=== PATIENT | male | born 1990 | race Caucasian/White ===

== ENCOUNTER → 2021-12-24 10:22 | Outpatient (BNVA) | payer MEDICAID, SELFPAY | PROVIDERS: Family Provider Internal Medicine; PCP Family Medicine; Referring Provider Nurse Practitioner Family; Visit Provider Podiatrist Foot & Ankle Surgery | DX: M76.821 Posterior tibial tendinitis, right leg (principal); M21.41 Flat foot [pes planus] (acquired), right foot; M21.42 Flat foot [pes planus] (acquired), left foot | CPT/HCPCS: 73630; 99203; 99204 ==

== ENCOUNTER 2022-01-27 19:41 | Emergency (ER) | payer MEDICAID, SELFPAY ==
[2022-01-27 19:51] VITALS: BP 149/94; PULSE 95; RESP 16; TEMP 36.7; O2SAT 97; BMI 35.2
[2022-01-27 20:10] LABS: Add Urine Microscopic? NO; Charge for UA Resulting for Rev
[2022-01-27 20:14] LABS: Glucose Urine UA 4+ (Normal); Specific Gravity, Urine 1.005 (1.005-1.030); Urine Appearance Clear (CLEAR); Urine Color Yellow (Yellow); pH Urine 7 (5-7)
[2022-01-27 20:15] LABS: Bilirubin Urine Neg (Negative); Blood Urine Neg (Negative); Ketones Urine Negative (Negative); Leukocyte Esterase Urine Negative (Negative); Nitrate Urine Negative (Negative); Protein Urine Neg (Negative); Urobilinogen Urine Neg (Negative)
--- NOTE | 2022-01-27 21:33 | CTR_ITS ---
PROCEDURE INFORMATION: Exam: CT Abdomen And Pelvis Without Contrast Exam date and time: 01/27/2022 9:51 PM Age: 31 years old Clinical indication: Abdominal pain; Flank; Other: Bilateral; Additional info: Bilateral flank pain TECHNIQUE: Imaging protocol: Computed tomography of the abdomen and pelvis without contrast. Radiation optimization: All CT scans at this facility use at least one of these dose optimization techniques: automated exposure control; mA and/or kV adjustment per patient size (includes targeted exams where dose is matched to clinical indication); or iterative reconstruction. COMPARISON: CR XR pelvis 1-2V* [id number] 04/09/2017 7:13 AM RADIATION DOSE METRICS: Total DLP (mGy-cm): 1180.9 FINDINGS: Lungs: The lung bases appear unremarkable. Liver: Hepatomegaly noted. Liver measures 21 cm in length. Decreased hepatic density consistent with hepatic steatosis noted. Gallbladder and bile ducts: Unremarkable. No calcified stones. No ductal dilation. Pancreas: The pancreas is normal in appearance. No pancreatic duct dilatation. Spleen: Splenomegaly noted. Spleen measures 15 cm in length. No focal splenic lesion. Adrenal glands: The adrenal glands appear within normal limits. Kidneys and ureters: The kidneys are morphologically normal. No nephrolithiasis. No hydronephrosis. No ureteral calculi. No obstructive uropathy. Stomach and bowel: No acute gastric abnormality demonstrated. The small bowel is unremarkable as demonstrated. Minimal diverticulosis of the colon. No acute diverticulitis. Appendix: The appendix is normal in appearance. No evidence of appendicitis. Intraperitoneal space: No pneumoperitoneum. No significant fluid collection. Vasculature: No abdominal aortic aneurysm. Lymph nodes: No pathologically enlarged lymph nodes are demonstrated. No pathologically enlarged lymph nodes are demonstrated. Urinary bladder: The urinary bladder is unremarkable in appearance. The urinary bladder is unremarkable in appearance. Reproductive: Unremarkable as visualized. Bones/joints: No fracture or other acute osseous abnormality. Soft tissues: The soft tissues are unremarkable as demonstrated. CT/CT kidney stone [id number] IMPRESSION: 1. The kidneys are morphologically normal. No nephrolithiasis. No hydronephrosis. No ureteral calculi. No obstructive uropathy. 2. Hepatomegaly noted. Liver measures 21 cm in length. Decreased hepatic density consistent with hepatic steatosis noted. 3. No acute abnormality demonstrated in the abdomen and pelvis.
--- NOTE | 2022-01-27 21:34 | W.ED.MALEGU ---
Documented by User: OLIVER Delarosa 01/28/22 03:02 HPI - Male Genitourinary General: Chief complaint: Urogenital-Male Stated complaint: left abdomen pain, Left back pain, N/v Time Seen by Provider: 01/27/22 21:28 History of Present Illness: Patient is a 31-year-old male that comes to the ED with bilateral flank pain. Symptoms started approximately 3 days ago. Flank pain starts in the lower part of back and radiates up to the mid back bilaterally. He rates the pain currently a 10 out of 10. He has had intermittent nausea and vomiting as well for the past couple days. Endorses having burning pain when he urinates and that his urine is dark in color. Endorses chills. Denies any fevers, abdominal pain, bowel symptoms. Associated symptoms: Reports dysuria (Burning pain when he urinates) and hematuria (Dark-colored urine); Deny nausea or vomiting Review of Systems Const: Denies: fever(s), chills or fatigue Eyes: Denies: change in vision or eye discomfort ENMT: Denies: throat pain, odynophagia, nasal discharge or nasal congestion Card: Denies: chest pain, palpitations, edema, swelling of feet/ankles, dyspnea on exertion or orthopnea Resp: Denies: dyspnea, productive cough or non-productive cough GI: Denies: abdominal pain, nausea, vomiting, diarrhea, constipation or hematochezia : Reports: flank pain (Bilateral), dysuria (Burning pain when he urinates) and hematuria (Dark-colored urine); Denies: difficulty urinating Musc: Reports: back pain; Denies: neck pain or extremity swelling Skin/Breast: Denies: rash or new lesions Neuro: Denies: headache(s), numbness in extremities or weakness in extremities PFS ED PFSH: Medical History No pertinent family history Surgical History No pertinent past surgical history Social History Smoking and tobacco status: never smoked Second hand smoke exposure: No Smoking risk assessment/counseling performed?: No Alcohol intake: never Desire information about alcohol rehabilitation?: No Counseling given: No Desire information about substance/drug rehabilitation?: No Counseling given: No Physical Exam Const: COMMON NORMALS: patient oriented x3 and alert GENERAL APPEARANCE: cooperative HENMT: COMMON NORMALS: normocephalic HEAD & SCALP: normocephalic MOUTH: Normal oral and palatal mucosa present THROAT: posterior oropharynx normal and uvula midline Neck/C-Spine: COMMON NORMALS: supple GENERAL: Yes normal visual inspection Resp: COMMON NORMALS: normal respiratory effort, No retractions, No use of accessory muscles and clear to auscultation bilaterally AUSCULTATION: clear to auscultation bilaterally Cardio: COMMON NORMALS: regular rate, regular rhythm, S1 normal heart sound present, S2 normal heart sound present, No gallops present (Cardio), No clicks present (Cardio), No murmurs present (Cardio) and Peripheral pulses 2+ throughout RATE: regular rate RHYTHM: regular rhythm HEART SOUNDS: S1 normal heart sound present and S2 normal heart sound present PERIPHERAL PULSES: Peripheral pulses 2+ throughout GI: COMMON NORMALS: Normal to inspection, nondistended, normoactive bowel sounds present, Soft to palpation, non-tender and no masses PALPATION: Yes Soft to palpation : BLADDER/KIDNEY EXAM: Yes CVA tenderness bilateral Back/Pelvis: GENERAL BACK: Yes CVA tenderness LUMBAR SPINE/LOWER BACK: Yes paraspinal muscle tenderness Lumbar paraspinal muscle tenderness: bilateral Extremity: COMMON NORMALS: normal to inspection Neuro: COMMON NORMALS: patient oriented x3 SENSORIUM/ORIENTATION: Yes alert GAIT: Yes Normal gait present Skin: GENERAL SKIN EXAM: dry skin Course Vital Signs: Vital signs: Vital Signs Temperature 98.1 F 01/27/22 19:51 Pulse Rate 77 01/27/22 21:48 Respiratory Rate 18 01/27/22 21:48 Blood Pressure 140/82 01/27/22 21:48 Pulse Oximetry 97 01/27/22 21:48 Oxygen Delivery Me thod 01/27/22 21:48 MDM - Male Medical Decision Making Patient is a 31-year-old male that comes to the ED with bilateral flank pain. Symptoms started approximately 3 days ago. Flank pain starts in the lower part of back and radiates up to the mid back bilaterally. Vitals are stable. Patient has some CVA tenderness bilaterally and some lumbar paraspinal muscle tenderness bilaterally upon exam. The rest of exam is benign. Glucose of 329 but the rest of CBC and CMP were unremarkable. UA showed no blood or any signs of UTI. CT of abdomen pelvis showed no acute findings. Patient was given some IV insulin and morphine given to help with pain. His symptoms had resolved and he was feeling better. He was diagnosed with hyperglycemia and back pain. I told patient to follow-up with PCP to get checked for diabetes. He was sent home with a prescription for ibuprofen and a muscle relaxer. Return ED precautions given. Patient understood and agreed with plan. Lab Data I reviewed the patient's lab results. 01/27/22 21:37 01/27/22 21:37 Radiology Impressions Abdomen/Pelvis CT 01/27/22 21:33 IMPRESSION: 1. The kidneys are morphologically normal. No nephrolithiasis. No hydronephrosis. No ureteral calculi. No obstructive uropathy. 2. Hepatomegaly noted. Liver measures 21 cm in length. Decreased hepatic density consistent with hepatic steatosis noted. 3. No acute abnormality demonstrated in the abdomen and pelvis. Laboratory Results WBC 9.3 10^3/uL (4.0-10.0) 01/27/22 21:37 RBC 5.44 10^6/uL (4.1-5.3) H 01/27/22 21:37 Hgb 16.4 g/dL (11.7-16.6) 01/27/22 21:37 Hct 47.5 % (42.0-52.0) 01/27/22 21:37 MCV 87.3 fl (80-94) 01/27/22 21:37 MCH 30.1 pg (28.0-34.0) 01/27/22 21:37 MCHC 34.5 g/dL (30.0-36.0) 01/27/22 21:37 RDW 12.7 % (12.1-15.1) 01/27/22 21:37 Plt Count 271 10^3/cmm (130-400) 01/27/22 21:37 MPV 9.2 fL (7.4-10.4) 01/27/22 21:37 Neut % (Auto) 63.8 % 01/27/22 21: Lymph % (Auto) 26.6 % 01/27/22 21: [place] % (Auto) 7.9 % 01/27/22 21:37 Eos % (Auto) 1.1 % 01/27/22 21:37 Baso % (Auto) 0.3 % 01/27/22 21:37 Neut # (Auto) 5.91 10^3/uL (1.8-7.7) 01/27/22 21:37 Lymph # (Auto) 2.5 10^3/uL (0.8-4.8) 01/27/22 21:37 [place] # (Auto) 0.7 10^3/uL (0.2-0.9) 01/27/22 21:37 Eos # (Auto) 0.1 10^3/uL (0.0-0.8) 01/27/22 21:37 Baso # (Auto) 0.0 10^3/uL (0.0-0.1) 01/27/22 21:37 Nucleated RBC % (auto) 0 % 01/27/22 21:37 Nucleated RBCs # 0.0 /100WBC 01/27/22 21:37 Sodium 135 mmol/L (136-145) L 01/27/22 21:37 Potassium 4.2 mmol/L (3.5-5.1) 01/27/22 21:37 Chloride 101 mmol/L (98-107) 01/27/22 21:37 Carbon Dioxide 24 mmol/L (22-29) 01/27/22 21:37 Anion Gap 14.2 (5-19) 01/27/22 21:37 BUN 7 mg/dL (6-20) 01/27/22 21:37 Creatinine 0.8 mg/dL (0.7-1.2) 01/27/22 21:37 GFR Calculation 113.5 mL/min (90-130) 01/27/22 21:37 Glucose 329 mg/dL (65-115) H 01/27/22 21:37 POC Glucose 178 mg/dL (70-110) H 01/27/22 23:30 Calculated Osmolality 291 mOsm/kg (285-295) 01/27/22 21:37 Calcium 9.4 mg/dL (8.5-10.5) 01/27/22 21:37 Total Bilirubin 0.3 mg/dL (0.15-1.2) 01/27/22 21:37 AST 43 U/L (0-40) H 01/27/22 21:37 ALT 83 U/L (0-41) H 01/27/22 21:37 Alkaline Phosphatase 108 U/L (40-130) 01/27/22 21:37 Total Protein 7.4 g/dL (6.6-8.7) 01/27/22 21:37 Albumin 4.6 g/dL (3.5-5.2) 01/27/22 21:37 Globulin 2.8 g/dL (1.3-4.6) 01/27/22 21:37 Lipase 75 U/L (13-60) H 01/27/22 21:37 Urine Color Yellow (Yellow) 01/27/22 19:57 Urine Appearance Clear (CLEAR) 01/27/22 19:57 Urine pH 7 (5-7) 01/27/22 19:57 Ur Specific [place] 1.005 (1.005-1.030) 01/27/22 19:57 Urine Protein Neg (Negative) 01/27/22 19:57 Urine Glucose (UA) 4+ (Normal) H 01/27/22 19:57 Urine Ketones Negative (Negative) 01/27/22 19:57 Urine Blood Neg (Negative) 01/27/22 19:57 Urine Nitrate Negative (Negative) 01/27/22 19:57 Urine Bilirubin Neg (Negative) 01/27/22 19:57 Urine Urobilinogen Neg mg/dL (Negative) 01/27/22 19:57 Ur Leukocyte Esterase Negative (Negative) 01/27/22 19:57 Discharge Plan Discharge Patient Disposition: Home Clinical Impression: Hyperglycemia Back pain Qualifiers: Back pain location: low back pain Chronicity: unspecified Back pain laterality: unspecified Sciatica presence: without sciatica Qualified Code(s): M54.50 - Low back pain, unspecified Condition: Stable Prescriptions: New ibuprofen 600 mg tablet 600 mg PO Q8H PRN (Reason: back pain) Qty: 20 0RF methocarbamol 750 mg tablet 750 mg PO Q8H PRN (Reason: Back muscle pain or spasms) Qty: 20 0RF No Action oxcarbazepine 300 mg tablet 600 mg PO BID azelastine 137 mcg (0.1 %) aerosol,spray 1 spray intranasal BID Rx Instructions: administer into each nostril Allergy Relief (cetirizine) 10 mg capsule 10 mg PO DAILY topiramate 100 mg tablet 100 mg PO BID Invega Sustenna 234 mg/1.5 mL syringe 234 mg IM Q30D calcium polycarbophil [Fiber Laxative (ca polycarbo)] 625 mg tablet 1,250 mg PO BID Discharge Orders: Discharge ED (Routine); Ordered 01/27/22 Ordered By: Robin Wagner Referrals: Jessica Montague FNP [Primary Care Provider] - Discharge Diet: Regular Discharge Activity: Increase activity as tolerated Patient Instructions: Hyperglycemia, Back Pain (ED) Activity Restrictions/Additional Instructions: Follow-up with medical provider as directed. Follow-up with your PCP in the next 2 to 3 days for reevaluation and check labs for diabetes. take medications as prescribed. Return to the ER or your medical provider if condition worsens. Please read and understand discharge instructions. Thank you for choosing [facility] for your healthcare needs today. Please realize this is an emergency room and that we are providing you with a medical screening exam and this may not be complete and all inclusive of all the testing and or work up that you may need to determine your ailment or severity of your illness. It is very important that you follow up as instructed or that you return to the Emergency Department should you have concerns or if your condition changes or worsens in any way. Coding Level of Care Code ED Electro Optical Engineer for Chg Fwd Exam Comprehensive Documented by User: Chadwick Heath, 01/28/22 03:34 HPI - Male Genitourinary General: Chief complaint: Urogenital-Male Stated complaint: left abdomen pain, Left back pain, N/v Time Seen by Provider: 01/27/22 21:28 [facility] ED PFSH: Medical History No pertinent family history Surgical History No pertinent past surgical history Social History Smoking and tobacco status: never smoked Second hand smoke exposure: No Smoking risk assessment/counseling performed?: No Alcohol intake: never Desire information about alcohol rehabilitation?: No Counseling given: No Desire information about substance/drug rehabilitation?: No Counseling given: No Course Vital Signs: Vital signs: Vital Signs Temperature 98.1 F 01/27/22 19:51 Pulse Rate 77 01/27/22 21:48 Respiratory Rate 18 01/27/22 21:48 Blood Pressure 140/82 01/27/22 21:48 Pulse Oximetry 97 01/27/22 21:48 Oxygen Delivery Me thod 01/27/22 21:48 MDM - Male Medical Decision Making Patient is a 31-year-old male that comes to the ED with bilateral flank pain. Symptoms started approximately 3 days ago. Flank pain starts in the lower part of back and radiates up to the mid back bilaterally. Vitals are stable. Patient has some CVA tenderness bilaterally and some lumbar paraspinal muscle tenderness bilaterally upon exam. The rest of exam is benign. Glucose of 329 but the rest of CBC and CMP were unremarkable. UA showed no blood or any signs of UTI. CT of abdomen pelvis showed no acute findings. Patient was given some IV insulin and morphine given to help with pain. His symptoms had resolved and he was feeling better. He was diagnosed with hyperglycemia and back pain. I told patient to follow-up with PCP to get checked for diabetes. He was sent home with a prescription for ibuprofen and a muscle relaxer. Return ED precautions given. Patient understood and agreed with plan. This patient was originally seen by Mr. Kristy PA-C.? I agree with his history, evaluation, and treatment. Lab Data 01/27/22 21:37 01/27/22 21:37 Radiology Impressions Abdomen/Pelvis CT 01/27/22 21:33 IMPRESSION: 1. The kidneys are morphologically normal. No nephrolithiasis. No hydronephrosis. No ureteral calculi. No obstructive uropathy. 2. Hepatomegaly noted. Liver measures 21 cm in length. Decreased hepatic density consistent with hepatic steatosis noted. 3. No acute abnormality demonstrated in the abdomen and pelvis. Laboratory Results WBC 9.3 10^3/uL (4.0-10.0) 01/27/22 21:37 RBC 5.44 10^6/uL (4.1-5.3) H 01/27/22 21:37 Hgb 16.4 g/dL (11.7-16.6) 01/27/22 21:37 Hct 47.5 % (42.0-52.0) 01/27/22 21:37 MCV 87.3 fl (80-94) 01/27/22 21:37 MCH 30.1 pg (28.0-34.0) 01/27/22 21:37 MCHC 34.5 g/dL (30.0-36.0) 01/27/22 21:37 RDW 12.7 % (12.1-15.1) 01/27/22 21:37 Plt Count 271 10^3/cmm (130-400) 01/27/22 21:37 MPV 9.2 fL (7.4-10.4) 01/27/22 21:37 Neut % (Auto) 63.8 % 01/27/22 21:37 Lymph % (Auto) 26.6 % 01/27/22 21:37 [place] % (Auto) 7.9 % 01/27/22 21:37 Eos % (Auto) 1.1 % 01/27/22 21:37 Baso % (Auto) 0.3 % 01/27/22 21:37 Neut # (Auto) 5.91 10^3/uL (1.8-7.7) 01/27/22 21:37 Lymph # (Auto) 2.5 10^3/uL (0.8-4.8) 01/27/22 21:37 [place] # (Auto) 0.7 10^3/uL (0.2-0.9) 01/27/22 21:37 Eos # (Auto) 0.1 10^3/uL (0.0-0.8) 01/27/22 21:37 Baso # (Auto) 0.0 10^3/uL (0.0-0.1) 01/27/22 21:37 Nucleated RBC % (auto) 0 % 01/27/22 21:37 Nucleated RBCs # 0.0 /100WBC 01/27/22 21:37 Sodium 135 mmol/L (136-145) L 01/27/22 21:37 Potassium 4.2 mmol/L (3.5-5.1) 01/27/22 21:37 Chloride 101 mmol/L (98-107) 01/27/22 21:37 Carbon Dioxide 24 mmol/L (22-29) 01/27/22 21:37 Anion Gap 14.2 (5-19) 01/27/22 21:37 BUN 7 mg/dL (6-20) 01/27/22 21:37 Creatinine 0.8 mg/dL (0.7-1.2) 01/27/22 21:37 GFR Calculation 113.5 mL/min (90-130) 01/27/22 21:37 Glucose 329 mg/dL (65-115) H 01/27/22 21:37 POC Glucose 178 mg/dL (70-110) H 01/27/22 23:30 Calculated Osmolality 291 mOsm/kg (285-295) 01/27/22 21:37 Calcium 9.4 mg/dL (8.5-10.5) 01/27/22 21:37 Total Bilirubin 0.3 mg/dL (0.15-1.2) 01/27/22 21:37 AST 43 U/L (0-40) H 01/27/22 21:37 ALT 83 U/L (0-41) H 01/27/22 21:37 Alkaline Phosphatase 108 U/L (40-130) 01/27/22 21:37 Total Protein 7.4 g/dL (6.6-8.7) 01/27/22 21:37 Albumin 4.6 g/dL (3.5-5.2) 01/27/22 21:37 Globulin 2.8 g/dL (1.3-4.6) 01/27/22 21:37 Lipase 75 U/L (13-60) H 01/27/22 21:37 Urine Color Yellow (Yellow) 01/27/22 19:57 Urine Appearance Clear (CLEAR) 01/27/22 19:57 Urine pH 7 (5-7) 01/27/22 19:57 Ur Specific [place] 1.005 (1.005-1.030) 01/27/22 19:57 Urine Protein Neg (Negative) 01/27/22 19:57 Urine Glucose (UA) 4+ (Normal) H 01/27/22 19:57 Urine Ketones Negative (Negative) 01/27/22 19:57 Urine Blood Neg (Negative) 01/27/22 19:57 Urine Nitrate Negative (Negative) 01/27/22 19:57 Urine Bilirubin Neg (Negative) 01/27/22 19:57 Urine Urobilinogen Neg mg/dL (Negative) 01/27/22 19:57 Ur Leukocyte Esterase Negative (Negative) 01/27/22 19:57 Discharge Plan Discharge Patient Disposition: Home Clinical Impression: Hyperglycemia Back pain Qualifiers: Back pain location: low back pain Chronicity: unspecified Back pain laterality: unspecified Sciatica presence: without sciatica Qualified Code(s): M54.50 - Low back pain, unspecified Condition: Stable Prescriptions: New ibuprofen 600 mg tablet 600 mg PO Q8H PRN (Reason: back pain) Qty: 20 0RF methocarbamol 750 mg tablet 750 mg PO Q8H PRN (Reason: Back muscle pain or spasms) Qty: 20 0RF No Action oxcarbazepine 300 mg tablet 600 mg PO BID azelastine 137 mcg (0.1 %) aerosol,spray 1 spray intranasal BID Rx Instructions: administer into each nostril Allergy Relief (cetirizine) 10 mg capsule 10 mg PO DAILY topiramate 100 mg tablet 100 mg PO BID Invega Sustenna 234 mg/1.5 mL syringe 234 mg IM Q30D calcium polycarbophil [Fiber Laxative (ca polycarbo)] 625 mg tablet 1,250 mg PO BID Discharge Orders: Discharge ED (Routine); Ordered 01/27/22 Ordered By: Robin Wagner Referrals: Jessica Montague FNP [Primary Care Provider] - Discharge Diet: Regular Discharge Activity: Increase activity as tolerated Patient Instructions: Hyperglycemia, Back Pain (ED) Activity Restrictions/Additional Instructions: Follow-up with medical provider as directed. Follow-up with your PCP in the next 2 to 3 days for reevaluation and check labs for diabetes. take medications as prescribed. Return to the ER or your medical provider if condition worsens. Please read and understand discharge instructions. Thank you for choosing [facility] for your healthcare needs today. Please realize this is an emergency room and that we are providing you with a medical screening exam and this may not be complete and all inclusive of all the testing and or work up that you may need to determine your ailment or severity of your illness. It is very important that you follow up as instructed or that you return to the Emergency Department should you have concerns or if your condition changes or worsens in any way. Coding Level of Care Code ED Electro Optical Engineer for Chg Fwd Exam Comprehensive
[2022-01-27 21:46] VITALS: RESP 18; O2SAT 97
[2022-01-27] MEDS: sodium chloride 0.9% 1,000 ML 999 ML IV (21:46)
[2022-01-27] MEDS: morphine 4 mg/mL SDV 1 mL IVP (21:46)
[2022-01-27 21:48] VITALS: BP 140/82; PULSE 77; RESP 18; O2SAT 97
[2022-01-27] MEDS: ondansetron 2 mg/ML SDV 2 mL 4 MG IVP (21:48)
[2022-01-27 21:49] LABS: Basophils % 0.3 %; Eosinophils # 0.1 10^3/uL (0.0-0.8); Eosinophils % 1.1 %; Hematocrit 47.5 % (42.0-52.0); Hemoglobin 16.4 g/dL (11.7-16.6); Lymphocytes # 2.5 10^3/uL (0.8-4.8); Lymphocytes % 26.6 %; Mean Corpuscular HGB Conc 34.5 g/dL (30.0-36.0); Mean Corpuscular Hemoglobin 30.1 pg (28.0-34.0); Mean Corpuscular Volume 87.3 fl (80-94); Mean Platelet Volume 9.2 fL (7.4-10.4); Monocytes # 0.7 10^3/uL (0.2-0.9); Monocytes % 7.9 %; Neutrophils # 5.91 10^3/uL (1.8-7.7); Neutrophils % 63.8 %; Nucleated Red Blood Cells % 0 %; Platelet Count 271 10^3/cmm (130-400); Red Blood Count 5.44 10^6/uL (4.1-5.3); Red Cell Distribution Width 12.7 % (12.1-15.1); White Blood Count 9.3 10^3/uL (4.0-10.0)
[2022-01-27 22:02] LABS: Alanine Aminotransferase 83 U/L (0-41); Albumin Level 4.6 g/dL (3.5-5.2); Alkaline Phosphatase 108 U/L (40-130); Anion Gap 14.2 (5-19); Aspartate Amino Transferase 43 U/L (0-40); Blood Urea Nitrogen 7 mg/dL (6-20); Calcium 9.4 mg/dL (8.5-10.5); Carbon Dioxide 24 mmol/L (22-29); Chloride 101 mmol/L (98-107); Globulin 2.8 g/dL (1.3-4.6); Glomerular Filtration Rate 113.5 mL/min (90-130); Glucose 329 mg/dL (65-115); Lipase 75 U/L (13-60); Osmolality Calculated 291 mOsm/kg (285-295); Potassium 4.2 mmol/L (3.5-5.1); Sodium 135 mmol/L (136-145); Total Bilirubin 0.3 mg/dL (0.15-1.2); Total Protein 7.4 g/dL (6.6-8.7)
[2022-01-27] MEDS: insulin regular-human 100 units/1 mL 6 UNIT IVP (23:01)
[2022-01-27 23:34] LABS: Glucose Point of Care 178 mg/dL (70-110)
== END 2022-01-27 23:30 | disposition home or self-care (01) ==
PROVIDERS: Emergency Provider Physician Assistant; PCP Nurse Practitioner Family
DX: M54.50 Low back pain, unspecified (principal); R73.9 Hyperglycemia, unspecified
CPT/HCPCS: 36416; 74176; 80053; 81003; 82962; 83690; 85025; 96361; 96374; 96375; 99285; J1815; J2270; J2405; J7030

== ENCOUNTER → 2022-02-18 10:00 | Outpatient (BNVA) | payer MEDICAID, SELFPAY | PROVIDERS: PCP Nurse Practitioner Family; Visit Provider Podiatrist Foot & Ankle Surgery | DX: M76.821 Posterior tibial tendinitis, right leg (principal); M21.41 Flat foot [pes planus] (acquired), right foot; M21.42 Flat foot [pes planus] (acquired), left foot | CPT/HCPCS: 99213 ==

== ENCOUNTER 2022-03-17 20:45 | Emergency (ER) | payer MEDICAID, SELFPAY ==
--- NOTE | 2022-03-17 20:48 | XRR_ITS ---
PROCEDURE INFORMATION: Exam: XR Left Ankle Exam date and time: 03/17/2022 9:21 PM Age: 31 years old Clinical indication: Injury or trauma; Fall; Blunt trauma; Ankle; Left TECHNIQUE: Imaging protocol: Radiologic exam of the Left ankle. Views: 3 or more views. COMPARISON: No relevant prior studies available. FINDINGS: Bones/joints: There is no acute fracture or dislocation. If symptoms persist, follow-up imaging in several days may be useful to exclude an occult fracture. No other significant acute bone or joint abnormality. Soft tissues: Suspect mild soft tissue swelling over the lateral malleolus, and anteriorly. XR/XR ankle LT min 3V* [id number] IMPRESSION: No acute fracture or dislocation.
[2022-03-17 21:00] VITALS: BP 128/87; PULSE 85; RESP 16; TEMP 36.7; O2SAT 98
--- NOTE | 2022-03-17 22:45 | ED_ITS ---
HPI - Extremity Problem General: Chief complaint: Extremity Injury, Lower Stated complaint: left ankle injury post fall Time Seen by Provider: 03/17/22 22:12 Source: patient and family Mode of arrival: ambulatory Limitations: no limitations History of Present Illness: Patient presents to the emergency department today accompanied by his mother for evaluation treatment of left ankle injury. Patient states that tonight he was sitting up on the porch when he fell off and when he landed on his feet, rolled his left ankle in an inverted fashion. Patient states his foot feels numb and tingly-especially on the lateral portion and is significantly tender to the lateral malleolus with obvious swelling. Patient has been nonweightbearing due to discomfort since the injury. Review of Systems General: Reports: 10 or more systems reviewed and unremarkable except in HPI and below Musc: Reports: joint pain, joint swelling and limited range of motion PFSH ED PFSH: Medical History No pertinent family history Surgical History No pertinent past surgical history Social History Smoking and tobacco status: never smoked Second hand smoke exposure: No Smoking risk assessment/counseling performed?: No Alcohol intake: never Desire information about alcohol rehabilitation?: No Counseling given: No Desire information about substance/drug rehabilitation?: No Counseling given: No Physical Exam Const: COMMON NORMALS: no acute distress, patient oriented x3 and alert HENMT: COMMON NORMALS: normocephalic, atraumatic and hearing grossly normal bilaterally HEAD & SCALP: normocephalic and atraumatic Eye: COMMON NORMALS: Equal, round and reactive pupils present, EOMs intact bilaterally and conjunctivae normal CONJUNCTIVA: Yes conjunctivae normal PUPIL: Yes Equal, round and reactive pupils present Neck/C-Spine: COMMON NORMALS: full ROM and no JVD Lymph: LYMPHATIC: no lymphadenopathy noted Resp: COMMON NORMALS: normal respiratory effort, No retractions and No use of accessory muscles Cardio: COMMON NORMALS: no JVD and regular rate RATE: regular rate Extremity: NARRATIVE EXTREMITY EXAM: Patient has obvious swelling to the left lateral malleolus. Patient is nontender to palpation to the medial malleolus, space between the first and second and second and third metatarsals, or the distal tibia. However, patient is profusely tender to even gentle touch of the left lateral malleolus with some discomfort also to the proximal fifth metatarsal. Patient is nonweightbearing- he is using a wheelchair here in the department. Neuro: COMMON NORMALS: patient oriented x3 SENSORIUM/ORIENTATION: Yes alert Psych: COMMON NORMALS: mental status grossly normal, Normal thought process present, cooperative and normal affect THOUGHT PROCESS: Normal thought process present Skin: COMMON NORMALS: no rashes or lesions noted and turgor normal GENERAL SKIN EXAM: no rashes or lesions noted and turgor normal Course Vital Signs: Vital signs: Vital Signs Temperature 98.0 F 03/17/22 21:00 Pulse Rate 85 03/17/22 21:00 Respiratory Rate 16 03/17/22 21:00 Blood Pressure 128/87 03/17/22 21:00 Pulse Oximetry 98 03/17/22 21:00 Oxygen Delivery Me thod 03/17/22 21:00 MDM - Extremity (Nontraumatic) Medical Decision Making Patient presented to the emergency department today for evaluation treatment of left ankle injury. X-ray was read as negative however, they mention that with the swelling, patient may choose to be seen and evaluated again in approximately 1 week for potential occult fracture. I did discuss all this with patient and the mother. Patient was put into an Aircast with crutches provided as he is to remain nonweightbearing and immobilized the ankle. 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 Encourage them to have follow-up in 1 week with primary care, urgent care, or back here in the ER if he still has swel ling, pain with any ambulation or weightbearing. Otherwise, patient has full return of function without pain or swelling after 1 week he can continue to monitor after that point. Differential Diagnosis Unlikely herpes zoster, gout, superficial thrombophlebitis or lower extremity edema (Left ankle fracture, ankle sprain, proximal fifth metatarsal fracture) Lab Data Radiology Impressions Ankle X-Ray 03/17/22 20:48 IMPRESSION: No acute fracture or dislocation. Discharge Plan Discharge Patient Disposition: Home Clinical Impression: Left ankle sprain Condition: Stable Prescriptions: No Action oxcarbazepine 300 mg tablet 600 mg PO BID azelastine 137 mcg (0.1 %) aerosol,spray 1 spray intranasal BID Rx Instructions: administer into each nostril Allergy Relief (cetirizine) 10 mg capsule 10 mg PO DAILY topiramate 100 mg tablet 100 mg PO BID Invega Sustenna 234 mg/1.5 mL syringe 234 mg IM Q30D calcium polycarbophil [Fiber Laxative (ca polycarbo)] 625 mg tablet 1,250 mg PO BID ibuprofen 600 mg tablet 600 mg PO Q8H PRN (Reason: back pain) Qty: 20 0RF methocarbamol 750 mg tablet 750 mg PO Q8H PRN (Reason: Back muscle pain or spasms) Qty: 20 0RF Discharge Orders: Discharge ED (Routine); Ordered 03/17/22 Ordered By: Leeann Marte Referrals: Jessica Montague FNP [Primary Care Provider] - Discharge Diet: Usual diet Discharge Activity: Use walker/crutches as instructed Patient Instructions: Ankle Sprain (ED), Ankle Stirrup Splint (ED) Activity Restrictions/Additional Instructions: The x-ray today was read negative for any signs of an obvious fracture however, given the amount of swelling and tenderness, we do recommend immobilizing your ankle and avoiding any weightbearing for 1 week which that time you can have follow-up with primary care, urgent care, or back here at the emergency department for recheck. If you are back to normal baseline without any pain with walking or ambulating you do not need to follow-up however, if there is any type of pain, swelling, or difficulty with ambulation at that time we do recommend being seen again. You may require another set of x-ray films to look for signs of an occult fracture. However, this week we recommend wearing your ankle brace as often as possible-only take off to bathe and do not weight-bear in the shower. We recommend using crutches anytime you need to get up and move around during this time. Keep your foot up as often as possible and elevate your leg. Apply ice to the area of swelling for 15 to 20 minutes, multiple times throughout the day and use Tylenol and ibuprofen for discomfort. Stand Alone Forms: Work/School Release Coding Level of Care Code ED Process Mold Technician for Kathy Fwd Exam Comprehensive
== END 2022-03-17 22:55 | disposition home or self-care (01) ==
PROVIDERS: Emergency Provider Physician Assistant; PCP Nurse Practitioner Family
DX: S93.402A Sprain of unspecified ligament of left ankle, initial encounter (principal); X50.1XXA Overexertion from prolonged static or awkward postures, initial encounter
CPT/HCPCS: 73610; 99283; E0114

== ENCOUNTER 2022-04-18 20:20 | Emergency (ER) | payer MEDICAID, SELFPAY ==
[2022-04-18 20:43] VITALS: BP 177/105; PULSE 97; RESP 18; TEMP 36.8; O2SAT 95; BMI 34.9
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
[2022-04-18 20:53] VITALS: PULSE 94; RESP 20; O2SAT 95
== END 2022-04-18 20:54 | disposition home or self-care (01) ==
PROVIDERS: Emergency Provider Emergency Medicine; PCP Nurse Practitioner Family
DX: S51.852A Open bite of left forearm, initial encounter (principal); Y04.1XXA Assault by human bite, initial encounter
CPT/HCPCS: 99283

== ENCOUNTER → 2022-05-06 10:17 | Outpatient (BNVA) | payer MEDICAID, SELFPAY | PROVIDERS: PCP Nurse Practitioner Family; Visit Provider Podiatrist Foot & Ankle Surgery | DX: M76.822 Posterior tibial tendinitis, left leg (principal); M21.41 Flat foot [pes planus] (acquired), right foot; M21.42 Flat foot [pes planus] (acquired), left foot | CPT/HCPCS: 99213 ==

== ENCOUNTER 2022-08-31 11:05 | Emergency (ER) | payer MEDICAID, SELFPAY ==
[2022-08-31 11:08] VITALS: BP 154/84; PULSE 104; RESP 19; TEMP 36.8; O2SAT 95; BMI 36.6
--- NOTE | 2022-08-31 13:20 | ECG_ITS ---
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 Measurements Intervals [place] Rate: 74 P: 18 NC: 150 QRS: 56 QRSD: 105 T: 40 QT: 386 QTc: 429 Interpretive Statements SINUS RHYTHM No previous ECG available for comparison Electronically Signed On 08-31-2022 14:12:18 CDT by Fahad Hernanedz M.D. [email or web address]
--- NOTE | 2022-08-31 13:20 | XRR_ITS ---
PROCEDURE INFORMATION: Exam: XR Chest Exam date and time: 08/31/2022 1:25 PM Age: 31 years old Clinical indication: Cough and dyspnea; Additional info: Dyspnea/cough TECHNIQUE: Imaging protocol: Radiologic exam of the chest. Views: 1 view. COMPARISON: CR XR chest 1V [id number] 04/09/2017 7:07 AM FINDINGS: Lungs: Unremarkable. No consolidation. Pleural spaces: Unremarkable. No pleural effusion. No pneumothorax. Heart/Mediastinum: Unremarkable. No cardiomegaly. Bones/joints: No acute abnormality. XR/XR chest 1V portable [id number] IMPRESSION: No acute findings.
--- NOTE | 2022-08-31 13:44 | ED_ITS ---
HPI - General Adult General: Chief complaint: General Medical Stated complaint: overheated, nausea Time Seen by Provider: 08/31/22 12:38 Source: patient Mode of arrival: ambulatory History of Present Illness: 31-year-old male was playing outside get lightheaded dizzy felt weak he felt it was due to the heat. He has a history of some mental health issues he is on paliperidone. Denies any fever no loss consciousness no vomiting or diarrhea but he has been nauseous Onset (ago): hour(s) Associated symptoms: Deny chest pain, confusion, cough, diaphoresis, decreased appetite, dyspnea, fevers/chills, headache(s), malaise, nausea, rash, palpitations, seizures, short of breath, syncope, vomiting or weakness Treatments prior to arrival: none Review of Systems Const: Reports: fatigue; Denies: fever(s), chills, malaise or diaphoresis ENMT: Denies: throat pain, ear or mastoid pain, nasal discharge or nasal congestion Card: Denies: chest pain, palpitations or syncope Resp: Denies: dyspnea GI: Reports: abdominal pain; Denies: nausea or vomiting : Denies: flank pain, dysuria, urinary frequency or urinary urgency Skin/Breast: Denies: rash Neuro: Denies: headache(s) or confusion PFSH ED PFSH: Medical History No pertinent family history Surgical History No pertinent past surgical history Social History Smoking and tobacco status: never smoked Second hand smoke exposure: No Smoking risk assessment/counseling performed?: No Alcohol intake: never Desire information about alcohol rehabilitation?: No Counseling given: No Substance/Drug Use: never Desire information about substance/drug rehabilitation?: No Counseling given: No Physical Exam Const: GENERAL APPEARANCE: cooperative and comfortable ORIENTATION/CONSCIOUSNESS: Yes awake, Yes oriented to person, Yes oriented to place and Yes oriented to time HENMT: COMMON NORMALS: normocephalic, atraumatic and hearing grossly normal bilaterally HEAD & SCALP: normocephalic and atraumatic Resp: COMMON NORMALS: normal respiratory effort, No retractions, No use of accessory muscles and clear to auscultation bilaterally AUSCULTATION: clear to auscultation bilaterally Cardio: COMMON NORMALS: regular rate, regular rhythm and No murmurs present (Cardio) RATE: regular rate RHYTHM: regular rhythm GI: COMMON NORMALS: Soft to palpation and No hepatosplenomegaly present AUSCULTATION: Yes normoactive bowel sounds PALPATION: Yes Soft to palpation, No Tenderness to palpation present (GI), No Guarding due to palpation present (GI) and Yes No hepatosplenomegaly present Extremity: COMMON NORMALS: normal to inspection, capillary refill normal, no clubbing, cyanosis or edema, no calf tenderness and no pedal edema Neuro: SENSORIUM/ORIENTATION: Yes oriented to person, Yes oriented to place and Yes oriented to time Skin: COMMON NORMALS: no rashes or lesions noted GENERAL SKIN EXAM: no rashes or lesions noted Course Vital Signs: Vital signs: Vital Signs Temperature 98.3 F 08/31/22 11:08 Pulse Rate 66 08/31/22 15:20 Respiratory Rate 16 08/31/22 15:20 Blood Pressure 145/84 08/31/22 15:20 Pulse Oximetry 100 08/31/22 15:20 Oxygen Delivery Me thod Room Air 08/31/22 11:08 [facility] - General Adult Medical Decision Making Labs reviewed with the patient. Symptoms improved after IV fluids discharge home. Avoid exposure to heat increase fluid intake follow-up as needed return if has further problems Medical Records I reviewed the patient's medical records. Lab Data I reviewed the patient's lab results. 08/31/22 13:37 08/31/22 13:37 Radiology Impressions Chest X-Ray 08/31/22 13:20 IMPRESSION: No acute findings. Laboratory Results WBC 10.2 10^3/uL (4.0-10.0) H 08/31/22 13:37 RBC 5.49 10^6/uL (4.1-5.3) H 08/31/22 13:37 Hgb 15.9 g/dL (11.7-16.6) 08/31/22 13:37 Hct 46.9 % (42.0-52.0) 08/31/22 13:37 MCV 85.4 fl (80-94) 08/31/22 13:37 MCH 29.0 pg (28.0-34.0) 08/31/22 13:37 MCHC 33.9 g/dL (30.0-36.0) 08/31/22 13:37 RDW 13.0 % (12.1-15.1) 08/31/22 13:37 Plt Count 250 10^3/cmm (130-400) 08/31/22 13:37 MPV 9.1 fL (7.4-10.4) 08/31/22 13:37 Neut % (Auto) 70.9 % 08/31/22 13:37 Lymph % (Auto) 19.8 % 08/31/22 13:37 Mccormick % (Auto) 7.5 % 08/31/22 13:37 Eos % (Auto) 1.1 % 08/31/22 13:37 Baso % (Auto) 0.3 % 08/31/22 13:37 Neut # (Auto) 7.24 10^3/uL (1.8-7.7) 08/31/22 13:37 Lymph # (Auto) 2.0 10^3/uL (0.8-4.8) 08/31/22 13:37 Mccormick # (Auto) 0.8 10^3/uL (0.2-0.9) 08/31/22 13:37 Eos # (Auto) 0.1 10^3/uL (0.0-0.8) 08/31/22 13:37 Baso # (Auto) 0.0 10^3/uL (0.0-0.1) 08/31/22 13:37 Nucleated RBC % (auto) 0 % 08/31/22 13:37 Nucleated RBCs # 0.0 /100WBC 08/31/22 13:37 Sodium 140 mmol/L (136-145) 08/31/22 13:37 Potassium 4.0 mmol/L (3.5-5.1) 08/31/22 13:37 Chloride 105 mmol/L (98-107) 08/31/22 13:37 Carbon Dioxide 23 mmol/L (22-29) 08/31/22 13:37 Anion Gap 16.0 (5-19) 08/31/22 13:37 BUN 14 mg/dL (6-20) 08/31/22 13:37 Creatinine 0.9 mg/dL (0.7-1.2) 08/31/22 13:37 GFR Calculation 99.1 mL/min (90-130) 08/31/22 13:37 Glucose 95 mg/dL (65-115) 08/31/22 13:37 Calculated Osmolality 290 mOsm/kg (285-295) 08/31/22 13:37 Calcium 9.0 mg/dL (8.5-10.5) 08/31/22 13:37 Total Bilirubin 0.4 mg/dL (0.15-1.2) 08/31/22 13:37 AST 56 U/L (0-40) H 08/31/22 13:37 ALT 71 U/L (0-41) H 08/31/22 13:37 Alkaline Phosphatase 78 U/L (40-130) 08/31/22 13:37 Total Protein 7.5 g/dL (6.6-8.7) 08/31/22 13:37 Albumin 4.7 g/dL (3.5-5.2) 08/31/22 13:37 Globulin 2.8 g/dL (1.3-4.6) 08/31/22 13:37 Discharge Plan Discharge Patient Disposition: Home Clinical Impression: Heat exhaustion Condition: Stable Prescriptions: No Action oxcarbazepine 300 mg tablet 600 mg PO BID azelastine 137 mcg (0.1 %) aerosol,spray 1 spray intranasal BID Rx Instructions: administer into each nostril Allergy Relief (cetirizine) 10 mg capsule 10 mg PO DAILY topiramate 100 mg tablet 100 mg PO BID Invega Sustenna 234 mg/1.5 mL syringe 234 mg IM Q30D calcium polycarbophil [Fiber Laxative (ca polycarbo)] 625 mg tablet 1,250 mg PO BID (DME) AFO to left See Rx Instructions .Route .MEDSUPPLY Qty: 1 0RF Rx Instructions: As directed by CATHLEEN&O ibuprofen 600 mg tablet 600 mg PO Q8H PRN (Reason: back pain) Qty: 20 0RF methocarbamol 750 mg tablet 750 mg PO Q8H PRN (Reason: Back muscle pain or spasms) Qty: 20 0RF Discharge Orders: Discharge ED (Routine); Ordered 08/31/22 Ordered By: Valentino Chairez Referrals: Jessica Montague FNP [Primary Care Provider] - Discharge Diet: Usual diet Discharge Activity: Increase activity as tolerated Patient Instructions: Heat Exhaustion - Adult, Heat Exhaustion (ED), Opioid Safety, Pain Management Coding Level of Care Code ED Community Engagement Specialist for Kathy Lund
[2022-08-31] MEDS: ondansetron 2 mg/ML SDV 2 mL 4 MG IVP (13:46)
[2022-08-31] MEDS: sodium chloride 0.9% 1,000 ML 999 ML IV ×2 (13:47→14:53)
[2022-08-31 13:48] VITALS: BP 136/87; PULSE 76; RESP 16; O2SAT 96
[2022-08-31 14:02] LABS: Basophils % 0.3 %; Eosinophils # 0.1 10^3/uL (0.0-0.8); Eosinophils % 1.1 %; Hematocrit 46.9 % (42.0-52.0); Hemoglobin 15.9 g/dL (11.7-16.6); Lymphocytes % 19.8 %; Mean Corpuscular HGB Conc 33.9 g/dL (30.0-36.0); Mean Corpuscular Volume 85.4 fl (80-94); Mean Platelet Volume 9.1 fL (7.4-10.4); Monocytes # 0.8 10^3/uL (0.2-0.9); Monocytes % 7.5 %; Neutrophils # 7.24 10^3/uL (1.8-7.7); Neutrophils % 70.9 %; Nucleated Red Blood Cells % 0 %; Platelet Count 250 10^3/cmm (130-400); Red Blood Count 5.49 10^6/uL (4.1-5.3); White Blood Count 10.2 10^3/uL (4.0-10.0)
[2022-08-31 14:27] LABS: Alanine Aminotransferase 71 U/L (0-41); Albumin Level 4.7 g/dL (3.5-5.2); Alkaline Phosphatase 78 U/L (40-130); Aspartate Amino Transferase 56 U/L (0-40); Blood Urea Nitrogen 14 mg/dL (6-20); Carbon Dioxide 23 mmol/L (22-29); Chloride 105 mmol/L (98-107); Globulin 2.8 g/dL (1.3-4.6); Glomerular Filtration Rate 99.1 mL/min (90-130); Glucose 95 mg/dL (65-115); Osmolality Calculated 290 mOsm/kg (285-295); Sodium 140 mmol/L (136-145); Total Bilirubin 0.4 mg/dL (0.15-1.2); Total Protein 7.5 g/dL (6.6-8.7)
[2022-08-31 15:20] VITALS: BP 145/84; PULSE 66; RESP 16; O2SAT 100
== END 2022-08-31 15:27 | disposition home or self-care (01) ==
PROVIDERS: Emergency Provider Family Medicine; PCP Nurse Practitioner Family
DX: T67.5XXA Heat exhaustion, unspecified, initial encounter (principal); X30.XXXA Exposure to excessive natural heat, initial encounter
CPT/HCPCS: 36415; 71045; 80053; 85025; 93005; 96361; 96374; 99285; J2405; J7030

== ENCOUNTER 2022-09-10 23:54 | Emergency (ER) | payer MEDICAID, SELFPAY ==
[2022-09-11 00:02] VITALS: BP 130/83; PULSE 100; RESP 16; TEMP 36.6; O2SAT 97; BMI 35.9
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
[2022-09-11] MEDS: fluorescein 1 mg Strip EYE-LEFT (01:30)
[2022-09-11] MEDS: tetracaine 0.5% Op Soln 4 mL Btl 1 DROP EYE-BOTH (01:30)
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
[2022-09-11] MEDS: erythromycin Op Oint 1 gm 1 APPLIC EYE-LEFT (01:44)
[2022-09-11 02:15] VITALS: BP 125/82; PULSE 78; RESP 18; O2SAT 94
== END 2022-09-11 02:20 | disposition home or self-care (01) ==
PROVIDERS: Emergency Provider Emergency Medicine; PCP Nurse Practitioner Family
DX: S05.02XA Injury of conjunctiva and corneal abrasion without foreign body, left eye, initial encounter (principal); Y08.89XA Assault by other specified means, initial encounter; Y92.009 Unspecified place in unspecified non-institutional (private) residence as the place of occurrence of the external cause
CPT/HCPCS: 70160; 99283

== ENCOUNTER → 2022-09-16 13:58 | Outpatient (BNVA) | payer MEDICAID, SELFPAY | PROVIDERS: PCP Nurse Practitioner Family; Visit Provider Podiatrist Foot & Ankle Surgery | DX: M76.822 Posterior tibial tendinitis, left leg (principal); M76.821 Posterior tibial tendinitis, right leg; M21.42 Flat foot [pes planus] (acquired), left foot; M21.41 Flat foot [pes planus] (acquired), right foot; B35.3 Tinea pedis | CPT/HCPCS: 99214 ==

== ENCOUNTER 2022-12-16 10:12 | Outpatient (CLI) | payer MEDICAID, SELFPAY | END 2022-12-16 10:13 | disposition home or self-care (01) | LOC: SPT 10:12 | PROVIDERS: PCP Nurse Practitioner Family; Visit Provider Podiatrist Foot & Ankle Surgery | DX: Z46.89 Encounter for fitting and adjustment of other specified devices (principal); M76.829 Posterior tibial tendinitis, unspecified leg; M21.40 Flat foot [pes planus] (acquired), unspecified foot | CPT/HCPCS: 97760; L3030 ==

== ENCOUNTER 2023-05-11 11:35 | Emergency (ER) | payer MEDICAID, SELFPAY ==
[2023-05-11 12:27] VITALS: BP 116/75; PULSE 80; RESP 16; TEMP 36.6; O2SAT 98; BMI 35.5
[2023-05-11] MEDS: sodium chloride 0.9% 1,000 ML 999 ML IV (12:53)
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
[2023-05-11 12:57] LABS: Basophils % 0.2 %; Eosinophils % 0.3 %; Hematocrit 46.2 % (37-53); Lymphocytes # 1.5 10^3/uL (0.8-4.8); Lymphocytes % 10.5 %; Mean Corpuscular HGB Conc 34.8 g/dL (30-55); Mean Corpuscular Hemoglobin 29.2 pg (27-33); Mean Corpuscular Volume 83.7 fl (82-101); Monocytes # 0.8 10^3/uL (0.2-0.9); Monocytes % 5.4 %; Neutrophils # 11.69 10^3/uL (1.8-7.7); Neutrophils % 83.2 %; Nucleated Red Blood Cells % 0 %; Platelet Count 240 10^3/cmm (157-399); Red Blood Count 5.52 10^6/uL (3.85-5.65); Red Cell Distribution Width 12.6 % (12.1-15.1); White Blood Count 14.06 10^3/uL (3.29-11.43)
[2023-05-11 13:05] LABS: Add Urine Microscopic? NO; Charge for UA Resulting for Rev
[2023-05-11 13:12] LABS: Bilirubin Urine 1+ (Negative); Blood Urine Neg (Negative); Glucose Urine UA Norm (Normal); Ketones Urine 1+ (Negative); Leukocyte Esterase Urine Negative (Negative); Nitrate Urine Negative (Negative); Protein Urine Neg (Negative); Urine Appearance Clear (CLEAR); Urine Color Yellow (Yellow); Urobilinogen Urine Norm (Negative); pH Urine 5 (5-7)
[2023-05-11 13:15] LABS: Alanine Aminotransferase 70 U/L (0-41); Albumin Level 4.8 g/dL (3.5-5.2); Alkaline Phosphatase 84 U/L (40-130); Anion Gap 17.8 (5-19); Aspartate Amino Transferase 49 U/L (0-40); Blood Urea Nitrogen 15 mg/dL (6-20); Calcium 9.6 mg/dL (8.5-10.5); Carbon Dioxide 23 mmol/L (22-29); Chloride 102 mmol/L (98-107); Creatinine Clr Calc Pharmacy 158.2794; Globulin 2.6 g/dL (1.3-4.6); Glomerular Filtration Rate 98.4 mL/min (90-130); Glucose 117 mg/dL (65-115); Osmolality Calculated 290 mOsm/kg (285-295); Potassium 3.8 mmol/L (3.5-5.1); Sodium 139 mmol/L (136-145); Total Bilirubin 0.4 mg/dL (0.15-1.2); Total Protein 7.4 g/dL (6.6-8.7)
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
[2023-05-11] MEDS: ondansetron 2 mg/ML SDV 2 mL 4 MG IVP (13:27)
[2023-05-11 13:29] VITALS: BP 123/83; PULSE 67; RESP 16; O2SAT 96
[2023-05-11 14:20] VITALS: BP 128/73; PULSE 70; RESP 16; O2SAT 95
[2023-05-11 14:50] VITALS: BP 124/88; PULSE 75; RESP 18; O2SAT 95
== END 2023-05-11 14:51 | disposition home or self-care (01) ==
PROVIDERS: Emergency Provider Emergency Medicine; PCP Nurse Practitioner Family
DX: T43.591A Poisoning by other antipsychotics and neuroleptics, accidental (unintentional), initial encounter (principal); T50.2X1A Poisoning by carbonic-anhydrase inhibitors, benzothiadiazides and other diuretics, accidental (unintentional), initial encounter; T45.2X1A Poisoning by vitamins, accidental (unintentional), initial encounter; T46.5X1A Poisoning by other antihypertensive drugs, accidental (unintentional), initial encounter; T42.6X1A Poisoning by other antiepileptic and sedative-hypnotic drugs, accidental (unintentional), initial encounter; T38.3X1A Poisoning by insulin and oral hypoglycemic [antidiabetic] drugs, accidental (unintentional), initial encounter; T42.4X1A Poisoning by benzodiazepines, accidental (unintentional), initial encounter
CPT/HCPCS: 80053; 81003; 82962; 85025; 96361; 96374; 99284; J2405; J7030

== ENCOUNTER 2023-05-29 19:03 | Emergency (ER) | payer MEDICAID, SELFPAY ==
[2023-05-29 19:15] VITALS: BP 142/85; PULSE 64; RESP 16; TEMP 36.4; O2SAT 98
--- NOTE | 2023-05-29 21:08 | XR_ITS ---
WS: [id number] Portable AP upright chest, 05/29/2023 Clinical Data: chest pain Comparison: Portable chest, 08/31/2022 Findings: No nodules, masses or effusions are seen. The heart is normal. The pulmonary vascularity is not increased. No pneumonia or pneumothorax is seen. Impression: Negative chest.
[2023-05-29 21:30] LABS: Basophils % 0.4 %; Eosinophils # 0.1 10^3/uL (0.0-0.8); Eosinophils % 1.3 %; Hematocrit 46.2 % (37-53); Lymphocytes # 3.4 10^3/uL (0.8-4.8); Lymphocytes % 34.8 %; Mean Corpuscular HGB Conc 34.6 g/dL (30-55); Mean Corpuscular Hemoglobin 29.6 pg (27-33); Mean Corpuscular Volume 85.4 fl (82-101); Mean Platelet Volume 8.8 fL (7.4-10.4); Monocytes # 0.7 10^3/uL (0.2-0.9); Monocytes % 6.8 %; Neutrophils # 5.58 10^3/uL (1.8-7.7); Neutrophils % 56.5 %; Nucleated Red Blood Cells % 0 %; Platelet Count 241 10^3/cmm (157-399); Red Blood Count 5.41 10^6/uL (3.85-5.65); Red Cell Distribution Width 12.9 % (12.1-15.1); White Blood Count 9.88 10^3/uL (3.29-11.43)
--- NOTE | 2023-05-29 21:40 | W.ED.CHESTPA ---
HPI - Chest Pain General: Chief Complaint: Chest Pain Stated Complaint: Sharp chest pain through chest Time Seen by Provider: 05/29/23 21:40 History of Present Illness: 32-year-old male presents emerged part with complaints of having right-sided chest pain goes from his right sternum around his right ribs area and radiating to the right shoulder. He states the pain is a sharp stabbing type pain that is an 8 out of 10 and worse if he pushes on his chest or takes a deep breath in. He denies nausea or vomiting fevers chills or night sweats. He denies recent trauma or injury. He does endorse a nonproductive cough intermittently for the previous 1 week and has a history of asthma. Associated symptoms: Deny palpitations Review of Systems General: Reports: 10 or more systems reviewed and unremarkable except in HPI and below Card: Reports: chest pain; Denies: palpitations or irregular heart rhythm Resp: Reports: non-productive cough [facility] ED PFSH: Medical History No pertinent family history Surgical History No pertinent past surgical history Social History Smoking and tobacco/nicotine status: never used tobacco/nicotine Second hand smoke exposure: No Alcohol intake: never Substance/Drug Use: never Physical Exam Narrative: EXAM NARRATIVE: Constitutional: the patient appears well nourished and of normal development. Vital signs as documented. No acute distress at present. Alert and oriented-to person, place, time and situation. Head, eyes, ears, nose, mouth, throat: Normocephalic, atraumatic. Pupils-equal, round, reactive to light. No scleral icterus. Normal-appearing external ears. Normal appearing nasal turbinates, no drainage. No obvious oral lesions, posterior oropharynx without erythema or exudates. Neck: Supple, trachea is midline, no lymphadenopathy, no jugular venous distension, thyromegaly, or carotid bruits. Carotid upstrokes are brisk bilaterally. Lungs: clear to auscultation to all lung woodruff. Symmetrical rise and fall of chest, no obvious signs of increased work of breathing at present. Cardiac: Regular rate and rhythm, positive S1, S2. No murmurs, rubs or gallops that I can appreciate Abdomen: Soft, non-tender to palpation, normal active bowel sounds to all quadrants. No palpable masses, no organomegaly and abdominal bruits. Extremities: 2+ pulses in the upper extremities that are equal bilaterally, 2+ pulses in the lower extremities that are equal bilaterally. Non-edematous. Moves all extremities well, sensation to all extremities are noted. Skin: Warm, dry, intact. Thorax: Reproducible pain to palpation to the right sternal and costal cartilage. Course Vital Signs: Vital signs: Vital Signs Temperature 97.6 F 05/29/23 19:15 Pulse Rate 60 05/29/23 22:48 Respiratory Rate 18 05/29/23 22:48 Blood Pressure 118/65 05/29/23 22:48 Pulse Oximetry 98 05/29/23 22:48 Oxygen Delivery Me thod Room Air 05/29/23 19:15 MDM - Chest Pain Medical Decision Making Physical exam completed document I will obtain twelve-lead EKG cardiac enzyme CBC and CMP and a chest x-ray. I have provided the patient with Toradol IV as well as IV steroid and reevaluation demonstrates improved pain control. I will have him follow-up with his primary care provider and provide him written prescriptions at the time of discharge. Medical Records I reviewed the patient's medical records. Lab Data I reviewed the patient's lab results. 05/29/23 21:25 05/29/23: Laboratory Results WBC 9.88 10^3/uL (3.29-11.43) 05/29/23: RBC 5.41 10^6/uL (3.85-5.65) 05/29/23: Hgb 16.00 g/dL (11.27-16.99) 05/29/23: Hct 46.2 % (37-53) 05/29/23: MCV 85.4 fl (82-101) 05/29/23: MCH 29.6 pg (27-33) 05/29/23: MCHC 34.6 g/dL (30-55) 05/29/23 21: RDW 12.9 % (12.1-15.1) 05/29/23: Plt Count 241 10^3/cmm (157-399) 05/29/23: MPV 8.8 fL (7.4-10.4) 05/29/23: Neut % (Auto) 56.5 % 05/29/23: Lymph % (Auto) 34.8 % 05/29/23: Dickenson % (Auto) 6.8 % 05/29/23: Eos % (Auto) 1.3 % 05/29/23: Baso % (Auto) 0.4 % 05/29/23: Neut # (Auto) 5.58 10^3/uL (1.8-7.7) 05/29/23: Lymph # (Auto) 3.4 10^3/uL (0.8-4.8) 05/29/23: Dickenson # (Auto) 0.7 10^3/uL (0.2-0.9) 05/29/23: Eos # (Auto) 0.1 10^3/uL (0.0-0.8) 05/29/23: Baso # (Auto) 0.0 10^3/uL (0.0-0.1) 05/29/23: Nucleated RBC % (auto) 0 % 05/29/23 Nucleated RBCs # 0.0 /100WBC 05/29/23: Sodium 139 mmol/L (136-145) 05/29/23: Potassium 3.9 mmol/L (3.5-5.1) 05/29/23: Chloride 102 mmol/L (98-107) 05/29/23: Carbon Dioxide 24 mmol/L (22-29) 05/29/23: Anion Gap 16.9 (5-19) 05/29/23: BUN 20 mg/dL (6-20) 05/29/23: Creatinine 1.0 mg/dL (0.7-1.2) 05/29/23: GFR Calculation 87.2 mL/min (90-130) L 05/29/23: Glucose 95 mg/dL (65-115) 05/29/23: Calculated Osmolality 290 mOsm/kg (285-295) 03/21/24 21:25 Calcium 9.5 mg/dL (8.5-10.5) 05/29/23 21:25 Troponin T Baseline 15 ng/L (0-15) 05/29/23 21:25 All radiology interpretation(s) finalized by discharge EKG Data EKG 1: Interpretation: Twelve-lead EKG obtained at 2213 and reviewed at 2214 demonstrates sinus bradycardia with a ventricular rate of 52 bpm, MI interval 150 QRS duration 104, QT 445 QTc [address] elevation or depression to demonstrate acute ischemia or infarction at present. Discharge Plan Discharge Patient Disposition: Home Clinical Impression: Acute costochondritis, Atypical chest pain Condition: Stable Prescriptions: New cyclobenzaprine 10 mg tablet 10 mg PO Q8H Qty: 14 0RF prednisone 20 mg tablet 40 mg PO DAILY 5 Days Qty: 10 0RF naproxen 500 mg tablet 500 mg PO Q12H PRN (Reason: pain) Qty: 20 0RF No Action oxcarbazepine 300 mg tablet 600 mg PO BID azelastine 137 mcg (0.1 %) aerosol,spray 1 spray intranasal BID Rx Instructions: administer into each nostril Allergy Relief (cetirizine) 10 mg capsule 10 mg PO DAILY topiramate 100 mg tablet 100 mg PO BID Invega Sustenna 234 mg/1.5 mL syringe 234 mg IM Q30D calcium polycarbophil [Fiber Laxative (ca polycarbo)] 625 mg tablet 1,250 mg PO BID (DME) AFO to left See Rx Instructions .Route .MEDSUPPLY Qty: 1 0RF Rx Instructions: As directed by CATHLEEN&O metformin 500 mg tablet extended release 24 hr PO rosuvastatin 20 mg tablet PO melatonin 3 mg tablet PO Pataday Once Daily Relief 0.7 % drops ophthalmic (eye) fluoride (sodium) [PreviDent 5000 Booster Plus] 1.1 % paste 1 applic dental DAILY albuterol sulfate [Ventolin HFA] 90 mcg/actuation HFA aerosol inhaler inhalation ipratropium bromide 21 mcg (0.03 %) spray,non-aerosol intranasal polyethylene glycol 3350 [Gavilax] 17 gram/dose powder PO ondansetron 4 mg tablet,disintegrating PO (DME) SOLE Supports See Rx Instructions .Route .MEDSUPPLY Qty: 1 0RF Rx Instructions: As directed terbinafine HCl 1 % cream 1 applic topical BID Qty: 15 0RF ibuprofen 600 mg tablet 600 mg PO Q8H PRN (Reason: back pain) Qty: 20 0RF methocarbamol 750 mg tablet 750 mg PO Q8H PRN (Reason: Back muscle pain or spasms) Qty: 20 0RF Discharge Orders: Discharge ED (Routine); Ordered 05/29/23 Ordered By: Jose Tadeo Referrals: Jessica Montague FNP [Primary Care Provider] - Patient Instructions: Opioid Safety, Pain Management Activity Restrictions/Additional Instructions: Activity Restrictions/Additional Instructions: Thank you for choosing [facility] for your healthcare needs today. Please realize that you were seen in the Emergency Department and that we are providing you with an emergency medical screening exam and this may not be a complete and all inclusive of all the testing and or medical work-up that you may need to determine your ailment or severity of your illness. It is very important that you follow-up as instructed with your Primary care provider or Specialist for additional evaluation and to discuss your medical treatment plan. Coding Level of Care Code ED Last Waxer for Kathy Lund
[2023-05-29 21:49] LABS: Anion Gap 16.9 (5-19); Blood Urea Nitrogen 20 mg/dL (6-20); Calcium 9.5 mg/dL (8.5-10.5); Carbon Dioxide 24 mmol/L (22-29); Chloride 102 mmol/L (98-107); Creatinine Clr Calc Pharmacy 143.2757; Glomerular Filtration Rate 87.2 mL/min (90-130); Glucose 95 mg/dL (65-115); Osmolality Calculated 290 mOsm/kg (285-295); Potassium 3.9 mmol/L (3.5-5.1); Sodium 139 mmol/L (136-145)
[2023-05-29 21:53] LABS: Troponin(5th) Baseline 15 ng/L (0-15)
[2023-05-29] MEDS: methylPREDNISolone sod succ 125 mg/2 mL INJ 60 MG IVP (22:01)
[2023-05-29] MEDS: ketorolac 30 mg/mL INJ IVP (22:01)
--- NOTE | 2023-05-29 22:13 | ECG_ITS ---
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 Measurements Intervals Musella Rate: 52 P: 21 KS: 150 QRS: 47 QRSD: 104 T: 45 QT: 445 QTc: 417 Interpretive Statements SINUS BRADYCARDIA Compared to ECG 08/31/2022 13:26:41 Sinus rhythm no longer present Electronically Signed On 05-29-2023 22:15:54 CDT by Benito Bradley M.D. [id number]
[2023-05-29 22:38] VITALS: BP 118/65; PULSE 91; O2SAT 97
[2023-05-29 22:48] VITALS: BP 118/65; PULSE 60; RESP 18; O2SAT 98
== END 2023-05-29 22:49 | disposition home or self-care (01) ==
PROVIDERS: Emergency Provider Internal Medicine; PCP Nurse Practitioner Family
DX: R07.89 Other chest pain (principal); M94.0 Chondrocostal junction syndrome [Tietze]; Z79.84 Long term (current) use of oral hypoglycemic drugs
CPT/HCPCS: 36415; 71045; 80048; 84484; 85025; 93005; 96374; 96375; 99285; J1885; J2930

== ENCOUNTER → 2024-07-07 09:24 | Outpatient (BNVA) | payer MEDICAID, SELFPAY | PROVIDERS: PCP Nurse Practitioner Family; Visit Provider Family Medicine Adult Medicine | DX: N23 Unspecified renal colic (principal) | CPT/HCPCS: 81000 ==

== ENCOUNTER → 2024-08-11 17:36 | Outpatient (BNVA) | payer MEDICAID, SELFPAY | PROVIDERS: PCP Nurse Practitioner Family | DX: R39.9 Unspecified symptoms and signs involving the genitourinary system (principal); R30.0 Dysuria | CPT/HCPCS: 81000; 87086 ==